=== PATIENT | male | born 1995 | race Caucasian/White ===

== ENCOUNTER 2017-10-19 09:24 | Emergency (ER) | payer OTHER ==
[2017-10-19 09:33] VITALS: BP 130/89; PULSE 85; RESP 16; TEMP 97.5; O2SAT 96
--- NOTE | 2017-10-19 09:50 | EDPHY ---
H & P Time Seen by Provider: 10/19/17 09:32 HPI/ROS: CHIEF COMPLAINT: Testicular pain HISTORY OF PRESENT ILLNESS: 22-year-old male presents with right testicular pain. 3 days ago, he was sitting on the couch. A dog jumped up on the couch and it's paw struck the pt's right testicle. Immediate onset of mild pain. The pain and swelling have gradually increased and he now has moderate testicular pain and swelling. No abdominal pain, vomiting, fever or urinary symptoms. REVIEW OF SYSTEMS: Constitutional: No fever, no chills Eyes: No visual changes ENT: No sore throat Respiratory: No cough, no shortness of breath Cardiac: No chest pain Gastrointestinal: No nausea, no vomiting, no abdominal pain Musculoskeletal: No leg pain or swelling Skin: No rash Neurological: No headache, no weakness Psychiatric: No depression Past Medical/Surgical History: Denies Social History: Student at the [employer] PCP: Dr. Mauricio in [place] Smoking Status: Current some day smoker Physical Exam: General Appearance: Alert, pleasant Eyes: Pupils equal and round, no conjunctival pallor ENT, Mouth: Mucous membranes moist Neck: Normal inspection Respiratory: Lungs are clear to auscultation Cardiovascular: Regular rate and rhythm Gastrointestinal: Abdomen is soft and nontender Genitourinary: Uncircumcised male, moderate right testicular swelling and tenderness, with erythema of the scrotum Neurological: A&O, nonfocal, normal gait Skin: Warm and dry Extremities: Normal inspection Psychiatric: Mood and affect normal Constitutional: Initial Vital Signs Temperature (C) 36.4 C 10/19/17 09:28 Heart Rate 85 10/19/17 09:28 Respiratory Rate 16 10/19/17 09:28 Blood Pressure 130/89 H 10/19/17 09:28 O2 Sat (%) 96 10/19/17 09:28 O2 Delivery Mode Room Air Allergies/Adverse Reactions: No Known Allergies Allergy (Unverified 10/19/17 09:33) Home Medications: Medication Instructions Recorded Albuterol 10/19/17 Doxycycline Hyclate 100 mg PO BID #20 tablet 10/19/17 Medical Decision Making - Diagnostics Imaging Results: Imaging Impressions Testicular Ultrasound 10/19/17 09:47 Impression: 1. Right scrotal wall swelling with slight increased vascularity and small right hydrocele which may represent infection. No testicular torsion or intratesticular masses. 3. No definite focal hematoma or abscess. Findings and recommendations discussed with Emergency Department physician, Jessenia Woodward, at 1028 hours, 10/19/2017. Final report concurs with initial preliminary interpretation. ED Course/Re-evaluation: This patient presents with testicular swelling and scrotal erythema, more consistent with an infection instead of with trauma. Ultrasound ordered to rule out testicular torsion, hematoma or tumor. UA ordered to r/o UTI. 10:30 a.m.-ultrasound result per Dr. Matthew reveals a right hydrocele and thickening of the scrotal wall; no epididymitis, orchitis, hematoma, mass or torsion. Urinalysis is positive for urinary tract infection. I will treat this patient for an STD, given young age, physical exam and urinalysis/ ultrasound findings. Ceftriaxone 250 mg IM given and doxycycline prescribed. Urine cx sent. GC/Chlamydia sent. f/u urology. Return precautions given. Differential Diagnosis: Differential diagnosis includes does not limited to testicular torsion, testicular hematoma, epididymitis, orchitis, abscess. - Data Points Laboratory Results: 10/19/17 10/19/17 10:53 09:56 Urine Color YELLOW Urine Appearance HAZY Urine pH 6.0 (5.0-7.5) Ur Specific [place] 1.015 (1.002-1.030) Urine Protein NEGATIVE (NEGATIVE) Urine Ketones NEGATIVE (NEGATIVE) Urine Blood NEGATIVE (NEGATIVE) Urine Nitrate POSITIVE H (NEGATIVE) Urine Bilirubin NEGATIVE (NEGATIVE) Urine Urobilinogen 0.2 EU EU (0.2-1.0) Ur Leukocyte Esterase TRACE H (NEGATIVE) Urine RBC 1-3 /hpf /hpf (0-3) Urine WBC 25-50 /hpf H /hpf (0-3) Ur Epithelial Cells TRACE /lpf /lpf (NONE-1+) Urine Bacteria 4+ /hpf H /hpf (NONE SEEN) Hyaline Casts 1-3 /lpf H /lpf (0-1) Granular Casts 0-1 /lpf /lpf (0-1) Urine Mucus 1+ /lpf /lpf (NONE-1+) Urine Glucose NEGATIVE (NEGATIVE) C.trachomatis RNA (TMA) Pending N.gonorrhoeae RNA (TMA) Pending Medications Given: Discontinued Medications Ceftriaxone Sodium (Rocephin 250mg Vial) 250 mg IM EDNOW ONE PRN Reason: Protocol Stop: 10/19/17 10:43 Last Admin: 10/19/17 11:04 Dose: 250 mg Departure - Departure Disposition: Home, Routine, Self-Care Clinical Impression: Cellulitis of scrotum Urinary tract infection Qualifiers: Urinary tract infection type: urethritis Qualified Code(s): N34.2 - Other urethritis Condition: Good Instructions: Urinary Tract Infection in Men (ED), Cellulitis (ED) Additional Instructions: You have an infection of the scrotum and in your urine. A urine culture is pending. If you need a different course of antibiotics, based on the urine culture results, we will call you. Use scrotal support for comfort. Return for worsening swelling, redness/pain or fever. Follow-up with a urologist. Referrals: [facility] [Other] - As per Instructions Price Dominguez MD [Medical Doctor] - As per Instructions (Call to make an appointment.) Prescriptions: Doxycycline Hyclate 100 mg PO BID #20 tablet
[2017-10-19] MEDS ORDERED: cefTRIAXone 250 MG VIAL IM ONE (10:42)
[2017-10-23 12:59] LABS: GC AMPLIFICATION GENPROBE NEGATIVE (NEGATIVE)
== END 2017-10-19 11:09 | disposition home or self-care (01) ==
LOC: CED 09:24
DX: N49.2 Inflammatory disorders of scrotum (principal); N34.2 Other urethritis; B96.20 Unspecified Escherichia coli [E. coli] as the cause of diseases classified elsewhere; F17.200 Nicotine dependence, unspecified, uncomplicated
CPT/HCPCS: 76870-PO; 81003-PO; 81015-PO; J0696